=== PATIENT | female | born 1930 | race Caucasian/White ===

== ENCOUNTER 2017-11-21 00:48 | Inpatient (IN) | payer MEDICARE ==
[2017-11-21] MEDS: fentaNYL PF VIAL 100 MCG/2 ML VIAL IV ×7 (01:47→12:55)
[2017-11-21] MEDS: ONDANSETRON PF 4 MG/2 ML VIAL. IV ×3 (01:47→08:14)
[2017-11-21 03:28] LABS: BILIRUBIN,URINE NEGATIVE (NEG); CLARITY,URINE TURBID; COLOR,URINE YELLOW; GLUCOSE,URINE NEGATIVE (NEG); NITRITE,URINE POSITIVE (NEG); PROTEIN,URINE 100 mg/dL (NEG-TRACE); UROBILINOGEN,URINE 0.2 mg/dL (0.2 mg/dL)
[2017-11-21 04:01] LABS: BACTERIA,URINE MANY /HPF (0-FEW); BASO % 0 % (0-3); EOS # 0.1 x10^3/uL (0.0-0.7); EOS % 0 % (0-3); HEMOGLOBIN 10.4 g/dL (12.0-15.5); LYMPH # 0.7 x10^3/uL (1.0-4.8); LYMPH % 4 % (24-48); MEAN CORPUSCULAR HEMOGLOBIN 31 pg (25-35); MEAN CORPUSCULAR HGB CONC 33 g/dL (31-37); MEAN CORPUSCULAR VOLUME 95 fL (79-100); MONO # 1.4 x10^3/uL (0.0-1.1); MONO % 8 % (0-9); NEUT # 14.5 x10^3uL (1.8-7.7); NEUT % 87 % (31-73); PLATELET COUNT 236 x10^3/uL (140-400); RBC,URINE OCC /HPF (0-2); RED BLOOD COUNT 3.36 x10^6/uL (3.50-5.40); RED CELL DISTRIBUTION WIDTH 14.1 % (11.5-14.5); WHITE BLOOD COUNT 16.7 x10^3/uL (4.0-11.0)
[2017-11-21 04:02] LABS: SQUAMOUS EPITHELIAL CELL,UR OCC /LPF
[2017-11-21 04:03] LABS: ADD MAN DIFF? YES
[2017-11-21 04:12] LABS: ANION GAP 8 (6-14); BLOOD UREA NITROGEN 27 mg/dL (7-20); BUN/CREATININE RATIO 16 (6-20); CALCIUM 8.7 mg/dL (8.5-10.1); CARBON DIOXIDE 28 mmol/L (21-32); CHLORIDE 104 mmol/L (98-107); CREATININE 1.7 mg/dL (0.6-1.0); GFR 28.3; GLUCOSE 161 mg/dL (70-99); POTASSIUM 4.2 mmol/L (3.5-5.1); SODIUM 140 mmol/L (136-145)
[2017-11-21 04:20] LABS: ALBUMIN 2.8 g/dL (3.4-5.0); ALBUMIN/GLOBULIN RATIO 0.7 (1.0-1.7); ALK PHOS 73 U/L (46-116); ALT (SGPT) 13 U/L (14-59); AST (SGOT) 17 U/L (15-37); TOTAL BILIRUBIN 0.4 mg/dL (0.2-1.0); TOTAL PROTEIN 6.7 g/dL (6.4-8.2)
[2017-11-21] MEDS: IV NORMAL SALINE 1000ML BAG 1,000 ML IV ×2 (04:31→16:38)
[2017-11-21] MEDS ORDERED: DEXTROSE 50% 25 GM / 50ML DISP.SYRIN. IV ×2 (05:15→13:45)
[2017-11-21 05:16] LABS: % LYMPHS 5 % (24-48); % MONOS 6 % (0-10); % SEGS 89 % (35-66); PLT ESTIMATE ADEQUATE (ADEQUATE)
[2017-11-21 09:16] LABS: POC GLUCOSE 117 mg/dL (70-99)
[2017-11-21 11:54] LABS: POC GLUCOSE 113 mg/dL (70-99)
[2017-11-21] MEDS ORDERED: ONDANSETRON PF 4 MG/2 ML VIAL. IV (13:45)
[2017-11-21] MEDS ORDERED: MORPHINE SULFATE 2 MG/ML DISP.SYRIN. IV (13:45)
[2017-11-21] MEDS ORDERED: ACETAMINOPHEN 325 MG TABLET. PO (13:45)
[2017-11-21] MEDS ORDERED: hydrALAZINE 20 MG/ML VIAL. IVP (13:45)
[2017-11-21] MEDS: ASPIRIN CHEWABLE 81 MG TABLET. PO ×2 (14:00→22:16)
[2017-11-21] MEDS: LEVOTHYROXINE 25 MCG TABLET. PO ×2 (14:00→22:15)
[2017-11-21] MEDS: FLUTICASONE 50MCG/NASAL SPRAY 16GM BOTTLE. NS (14:00)
[2017-11-21] MEDS ORDERED: NON FORMULARY ITEM (Ropinirole Hcl 0.5 MG) PO (14:00)
[2017-11-21] MEDS: DICLOFENAC SODIUM 1% TOPICAL GEL 100GM TUBE. TP ×3 (14:00→21:06)
[2017-11-21] MEDS: OXYBUTYNIN CHLORIDE 5 MG TABLET PO ×2 (14:00→21:00)
[2017-11-21] MEDS: CETIRIZINE HCL 10 MG TABLET. PO (14:00)
[2017-11-21] MEDS: LOSARTAN POTASSIUM 50 MG TABLET. PO (14:29)
[2017-11-21] MEDS: LINAGLIPTIN 5 MG TABLET PO (14:29)
[2017-11-21] MEDS: rOPINIRole 0.25 MG TABLET. PO ×2 (14:29→21:04)
[2017-11-21] MEDS: HEPARIN PF for SUB-Q USE 5,000 UNIT/0.5 ML VIAL. SQ ×3 (14:34→22:15)
[2017-11-21] MEDS: traMADol 50 MG TABLET PO ×2 (14:36→21:04)
[2017-11-21] MEDS: POLYVINYL ALCOHOL 1.4% OPHTH SOLUTION 15ML BOTTLE. OU ×2 (16:38→21:00)
[2017-11-21] MEDS: INSULIN ASPART 300 UNITS/3 ML INSULN.PEN SQ (17:00)
[2017-11-21 17:31] LABS: POC GLUCOSE 102 mg/dL (70-99)
[2017-11-21] MEDS: ATORVASTATIN CALCIUM 20 MG TABLET PO (21:04)
[2017-11-21] MEDS: DONEPEZIL HCL 10 MG TABLET. PO (21:05)
[2017-11-21 21:15] LABS: POC GLUCOSE 102 mg/dL (70-99)
[2017-11-22 05:27] LABS: ADD MAN DIFF? NO
[2017-11-22 05:30] LABS: BASO % 0 % (0-3); EOS % 0 % (0-3); HEMATOCRIT 26.1 % (36.0-47.0); HEMOGLOBIN 8.5 g/dL (12.0-15.5); LYMPH % 8 % (24-48); MEAN CORPUSCULAR HEMOGLOBIN 31 pg (25-35); MEAN CORPUSCULAR HGB CONC 33 g/dL (31-37); MEAN CORPUSCULAR VOLUME 96 fL (79-100); MONO # 2.3 x10^3/uL (0.0-1.1); MONO % 18 % (0-9); NEUT # 9.2 x10^3uL (1.8-7.7); NEUT % 73 % (31-73); PLATELET COUNT 163 x10^3/uL (140-400); RED BLOOD COUNT 2.73 x10^6/uL (3.50-5.40); RED CELL DISTRIBUTION WIDTH 13.9 % (11.5-14.5); WHITE BLOOD COUNT 12.5 x10^3/uL (4.0-11.0)
[2017-11-22 06:07] LABS: ANION GAP 8 (6-14); BLOOD UREA NITROGEN 27 mg/dL (7-20); CALCIUM 8.5 mg/dL (8.5-10.1); CARBON DIOXIDE 26 mmol/L (21-32); CHLORIDE 105 mmol/L (98-107); CREATININE 1.5 mg/dL (0.6-1.0); GFR 32.7; GLUCOSE 93 mg/dL (70-99); POTASSIUM 4.3 mmol/L (3.5-5.1); SODIUM 139 mmol/L (136-145)
[2017-11-22] MEDS: POLYVINYL ALCOHOL 1.4% OPHTH SOLUTION 15ML BOTTLE. OU ×4 (07:57→21:48)
[2017-11-22] MEDS: FLUTICASONE 50MCG/NASAL SPRAY 16GM BOTTLE. NS (07:57)
[2017-11-22] MEDS: INSULIN ASPART 300 UNITS/3 ML INSULN.PEN SQ ×3 (07:57→17:00)
[2017-11-22] MEDS: OXYBUTYNIN CHLORIDE 5 MG TABLET PO ×2 (07:57→21:36)
[2017-11-22] MEDS: LOSARTAN POTASSIUM 50 MG TABLET. PO (07:57)
[2017-11-22] MEDS: rOPINIRole 0.25 MG TABLET. PO ×3 (07:58→21:37)
[2017-11-22] MEDS: DICLOFENAC SODIUM 1% TOPICAL GEL 100GM TUBE. TP ×4 (07:58→21:48)
[2017-11-22] MEDS: CETIRIZINE HCL 10 MG TABLET. PO (07:58)
[2017-11-22] MEDS: LINAGLIPTIN 5 MG TABLET PO (07:58)
[2017-11-22 08:00] LABS: POC GLUCOSE 83 mg/dL (70-99)
[2017-11-22] MEDS ORDERED: LIDOCAINE 1% PF 30 ML VIAL. (08:07)
[2017-11-22] MEDS ORDERED: ROCURONIUM 50 MG/5 ML VIAL. (10:05)
[2017-11-22] MEDS ORDERED: DEXAMETHASONE SOD PHOS 20 MG/5 ML VIAL. (10:05)
[2017-11-22] MEDS ORDERED: PHENYLEPHRINE in 0.9% NACL PF 1 MG/10 ML SYRINGE. IV ×2 (10:05→13:36)
[2017-11-22] MEDS ORDERED: SEVOFLURANE 31 TO 60 MINUTES. IH (10:05)
[2017-11-22] MEDS ORDERED: ONDANSETRON PF 4 MG/2 ML VIAL. (10:05)
[2017-11-22] MEDS ORDERED: LIDOCAINE 2% PF Vial for OR 5 ML VIAL. (10:05)
[2017-11-22] MEDS ORDERED: PROPOFOL 20 ML IV (10:05)
[2017-11-22] MEDS ORDERED: fentaNYL PF VIAL 100 MCG/2 ML VIAL ×2 (10:06→14:53)
[2017-11-22] MEDS ORDERED: BUPIVACAINE 0.5% 50 ML VIAL. (10:42)
[2017-11-22] MEDS: BUPIVACAINE 0.5% 50 ML VIAL. INJ (11:15)
[2017-11-22 11:24] LABS: POC GLUCOSE 83 mg/dL (70-99)
[2017-11-22] MEDS: ERGOCALCIFEROL (VITAMIN D2) 50,000 UNIT CAPSULE. PO (11:30)
[2017-11-22] MEDS: CLINDAMYCIN 900MG PREMIX 50 ML IV ×2 (12:00→21:36)
[2017-11-22] MEDS: MORPHINE SULFATE 5 MG, KETOROLAC 30 MG, ROPIVacaine 0.5% PF 60 ML, EPINEPHrine 0.5 MG i... INT ART (13:11)
[2017-11-22] MEDS ORDERED: NEOSTIGMINE METHYLSULFATE 5 MG/5 ML SYRINGE. (13:20)
[2017-11-22] MEDS ORDERED: GLYCOPYRROLATE 1 MG/5 ML VIAL. (13:20)
[2017-11-22 13:30] LABS: IMMEDIATE SPIN CROSSMATCH 1 1
[2017-11-22] MEDS ORDERED: SEVOFLURANE 61 TO 120 MINUTES. IH (13:56)
[2017-11-22] MEDS: FERROUS SULFATE 325 MG TABLET. PO (14:00)
[2017-11-22] MEDS: HEPARIN PF for SUB-Q USE 5,000 UNIT/0.5 ML VIAL. SQ ×2 (14:00→21:30)
[2017-11-22] MEDS: fentaNYL PF VIAL 100 MCG/2 ML VIAL IV ×2 (15:06→15:17)
[2017-11-22] MEDS ORDERED: MORPHINE SULFATE 2 MG/ML DISP.SYRIN. IV (15:15)
[2017-11-22 16:44] LABS: ADD MAN DIFF? NO
[2017-11-22 16:48] LABS: BASO % 0 % (0-3); EOS % 0 % (0-3); HEMATOCRIT 28.6 % (36.0-47.0); HEMOGLOBIN 9.7 g/dL (12.0-15.5); LYMPH # 0.4 x10^3/uL (1.0-4.8); LYMPH % 3 % (24-48); MEAN CORPUSCULAR HEMOGLOBIN 31 pg (25-35); MEAN CORPUSCULAR HGB CONC 34 g/dL (31-37); MEAN CORPUSCULAR VOLUME 92 fL (79-100); MONO # 1.1 x10^3/uL (0.0-1.1); MONO % 7 % (0-9); NEUT # 14.4 x10^3uL (1.8-7.7); NEUT % 91 % (31-73); PLATELET COUNT 166 x10^3/uL (140-400); RED BLOOD COUNT 3.11 x10^6/uL (3.50-5.40); RED CELL DISTRIBUTION WIDTH 15.7 % (11.5-14.5); WHITE BLOOD COUNT 15.9 x10^3/uL (4.0-11.0)
[2017-11-22 17:12] LABS: POC GLUCOSE 107 mg/dL (70-99)
[2017-11-22 21:26] LABS: POC GLUCOSE 136 mg/dL (70-99)
[2017-11-22] MEDS: DONEPEZIL HCL 10 MG TABLET. PO (21:36)
[2017-11-22] MEDS: ATORVASTATIN CALCIUM 20 MG TABLET PO (21:37)
[2017-11-23] MEDS: CLINDAMYCIN 900MG PREMIX 50 ML IV ×2 (04:08→12:31)
[2017-11-23] MEDS: HEPARIN PF for SUB-Q USE 5,000 UNIT/0.5 ML VIAL. SQ (06:30)
[2017-11-23] MEDS: LEVOTHYROXINE 125 MCG TABLET PO (07:26)
[2017-11-23] MEDS: INSULIN ASPART 300 UNITS/3 ML INSULN.PEN SQ ×3 (08:00→16:59)
[2017-11-23 08:01] LABS: POC GLUCOSE 127 mg/dL (70-99)
[2017-11-23] MEDS: FLUTICASONE 50MCG/NASAL SPRAY 16GM BOTTLE. NS (08:39)
[2017-11-23] MEDS: POLYVINYL ALCOHOL 1.4% OPHTH SOLUTION 15ML BOTTLE. OU ×4 (08:40→20:10)
[2017-11-23] MEDS: DICLOFENAC SODIUM 1% TOPICAL GEL 100GM TUBE. TP ×4 (08:40→20:10)
[2017-11-23] MEDS: CETIRIZINE HCL 10 MG TABLET. PO (08:41)
[2017-11-23] MEDS: OXYBUTYNIN CHLORIDE 5 MG TABLET PO ×2 (08:42→20:17)
[2017-11-23] MEDS: FERROUS SULFATE 325 MG TABLET. PO (08:42)
[2017-11-23] MEDS: ASPIRIN CHEWABLE 81 MG TABLET. PO (08:42)
[2017-11-23] MEDS: rOPINIRole 0.25 MG TABLET. PO ×3 (08:42→20:18)
[2017-11-23] MEDS: ERGOCALCIFEROL (VITAMIN D2) 50,000 UNIT CAPSULE. PO (08:42)
[2017-11-23] MEDS: LOSARTAN POTASSIUM 50 MG TABLET. PO (08:43)
[2017-11-23] MEDS: traMADol 50 MG TABLET PO (08:46)
[2017-11-23] MEDS: LINAGLIPTIN 5 MG TABLET PO (08:46)
[2017-11-23] MEDS: HYDROcodone/APAP 5/325MG 1 TAB TABLET PO ×2 (10:37→20:17)
[2017-11-23] MEDS ORDERED: ENOXAPARIN 30 MG/0.3 ML SYRINGE. SQ (11:00)
[2017-11-23] MEDS ORDERED: ENOXAPARIN 40 MG/0.4 ML SYRINGE. SQ (11:45)
[2017-11-23] MEDS: ENOXAPARIN 30 MG/0.3 ML SYRINGE. SQ (14:46)
[2017-11-23 17:19] LABS: MRSA BY PCR Negative (Negative)
[2017-11-23] MEDS: ATORVASTATIN CALCIUM 20 MG TABLET PO (20:17)
[2017-11-23] MEDS: DONEPEZIL HCL 10 MG TABLET. PO (20:18)
[2017-11-23 20:53] LABS: POC GLUCOSE 125 mg/dL (70-99)
[2017-11-23 20:53] LABS: POC GLUCOSE 103 mg/dL (70-99)
[2017-11-23 21:04] LABS: POC GLUCOSE 113 mg/dL (70-99)
[2017-11-24] MEDS: HYDROcodone/APAP 5/325MG 1 TAB TABLET PO ×3 (04:33→12:39)
[2017-11-24] MEDS: LEVOTHYROXINE 125 MCG TABLET PO (06:36)
[2017-11-24] MEDS: INSULIN ASPART 300 UNITS/3 ML INSULN.PEN SQ ×2 (07:21→12:00)
[2017-11-24 07:22] LABS: POC GLUCOSE 81 mg/dL (70-99)
[2017-11-24] MEDS: LOSARTAN POTASSIUM 50 MG TABLET. PO (08:15)
[2017-11-24] MEDS: DOCUSATE SODIUM 100 MG CAPSULE. PO (08:16)
[2017-11-24] MEDS: LINAGLIPTIN 5 MG TABLET PO (08:17)
[2017-11-24] MEDS: FERROUS SULFATE 325 MG TABLET. PO (08:17)
[2017-11-24] MEDS: CETIRIZINE HCL 10 MG TABLET. PO (08:17)
[2017-11-24] MEDS: rOPINIRole 0.25 MG TABLET. PO (08:17)
[2017-11-24] MEDS: OXYBUTYNIN CHLORIDE 5 MG TABLET PO (08:17)
[2017-11-24] MEDS: ASPIRIN CHEWABLE 81 MG TABLET. PO (08:18)
[2017-11-24] MEDS: DICLOFENAC SODIUM 1% TOPICAL GEL 100GM TUBE. TP (08:20)
[2017-11-24] MEDS: FLUTICASONE 50MCG/NASAL SPRAY 16GM BOTTLE. NS (09:00)
[2017-11-24] MEDS: POLYVINYL ALCOHOL 1.4% OPHTH SOLUTION 15ML BOTTLE. OU ×2 (09:00→09:20)
[2017-11-24] MEDS: traMADol 50 MG TABLET PO (11:33)
[2017-11-24 11:53] LABS: POC GLUCOSE 92 mg/dL (70-99)
== END 2017-11-24 14:20 | disposition home or self-care (01) | DRG 481 ==
LOC: ER 00:48 → 4 NORTH 02:54
PROC: 0QSC04Z Reposition Left Lower Femur with Internal Fixation Device, Open Approach (ICD-10-PCS; principal; 2017-11-22 11:15)
PROC: 5A09357 Assistance with Respiratory Ventilation, Less than 24 Consecutive Hours, Continuous Positive Airway Pressure (ICD-10-PCS; 2017-11-22 11:52)
DX: S72.402A Unspecified fracture of lower end of left femur, initial encounter for closed fracture (principal); N18.4 Chronic kidney disease, stage 4 (severe); E11.22 Type 2 diabetes mellitus with diabetic chronic kidney disease; I48.0 Paroxysmal atrial fibrillation; E44.1 Mild protein-calorie malnutrition; I48.91 Unspecified atrial fibrillation; D64.9 Anemia, unspecified; E03.9 Hypothyroidism, unspecified; E78.5 Hyperlipidemia, unspecified; F03.90 Unspecified dementia, unspecified severity, without behavioral disturbance, psychotic disturbance, mood disturbance, and anxiety; I12.9 Hypertensive chronic kidney disease with stage 1 through stage 4 chronic kidney disease, or unspecified chronic kidney disease; F32.9 Major depressive disorder, single episode, unspecified; M81.0 Age-related osteoporosis without current pathological fracture; M13.0 Polyarthritis, unspecified; I25.10 Atherosclerotic heart disease of native coronary artery without angina pectoris; W18.39XA Other fall on same level, initial encounter; Y93.89 Activity, other specified; Y92.092 Bedroom in other non-institutional residence as the place of occurrence of the external cause; Y99.8 Other external cause status; Z81.8 Family history of other mental and behavioral disorders; Z82.0 Family history of epilepsy and other diseases of the nervous system; Z82.49 Family history of ischemic heart disease and other diseases of the circulatory system; Z82.5 Family history of asthma and other chronic lower respiratory diseases; Z83.3 Family history of diabetes mellitus; Z86.711 Personal history of pulmonary embolism; Z88.0 Allergy status to penicillin; Z99.3 Dependence on wheelchair; Z87.440 Personal history of urinary (tract) infections; Z87.81 Personal history of (healed) traumatic fracture; Z79.01 Long term (current) use of anticoagulants; Z68.26 Body mass index [BMI] 26.0-26.9, adult
CPT/HCPCS: 36415; 51702; 71045; 73502; 73552; 73700; 76000; 80048; 80053; 81001; 82306; 82962; 85007; 85025; 85610; 86850; 86900; 86901; 86920; 87086; 87186; 87641; 93005; 93306; 96374; 96375; 97162-GP; 97166-GO; 99285-25; C1713; J0171; J1100; J1650; J1815; J1885; J2270; J2370; J2405; J2704; J2710; J2795; J3010; J3490; J7030; P9016